=== PATIENT | male | born 1995 | race Two or more races ===

== ENCOUNTER 2023-11-22 16:32 | Emergency (ER) | payer OTHER ==
[~2023-11-22] VITALS: Ht 177.8 cm; Wt 104.3 kg
[2023-11-22] MEDS ORDERED: MUPIROCIN15 GM TOP (19:19)
[2023-11-22] MEDS ORDERED: BACTRIM DS TAB1 EACH PO (19:19)
== END 2023-11-22 19:40 | disposition home or self-care (01) ==
LOC: ER 16:33
DX: L02.411 Cutaneous abscess of right axilla (principal)

== ENCOUNTER 2024-05-12 13:37 | Emergency (ER) | payer OTHER ==
[~2024-05-12] VITALS: Ht 175.3 cm; Wt 102.1 kg
[~2024-05-12 13:37] MED LIST: BACTRIM DS TAB1 EACH PO; MUPIROCIN15 GM TOP
[2024-05-12] MEDS ORDERED: KETOROLAC TROMETHAMINE 30 MG VIAL IM STA (15:02)
[2024-05-12] MEDS ORDERED: ORPHENADRINE CITRATE 30 MG/ML AMPUL IM STA (15:03)
== END 2024-05-12 16:21 | disposition home or self-care (01) ==
LOC: ER 13:38
DX: M54.50 Low back pain, unspecified (principal)